=== PATIENT | female | born 1965 | race African-American/Black ===

== ENCOUNTER 2017-07-06 08:28 | Emergency (ER) | payer MEDICARE ==
[~2017-07-06] VITALS: Ht 165.1 cm; Wt 65.8 kg
[2017-07-06] MEDS ORDERED: MINOCYCLINE HCL50 MG PO (09:03)
[2017-07-06] MEDS ORDERED: NORVASC5 MG PO (09:03)
[2017-07-06] MEDS ORDERED: SODIUM CHLORIDE 0.9% 1000ML 1,000 ML IV STA (09:09)
[2017-07-06] MEDS ORDERED: PROMETHAZINE 25MG/ NS 50ML (IV) IV ONE (09:15)
[2017-07-06 11:02] VITALS: BP 130/84
== END 2017-07-06 10:55 | disposition home or self-care (01) ==
LOC: FSED 08:31
DX: R11.2 Nausea with vomiting, unspecified (principal); R19.7 Diarrhea, unspecified; A08.4 Viral intestinal infection, unspecified; I10 Essential (primary) hypertension
CPT/HCPCS: 80048; 81003; 99283; J2550; J7030

== ENCOUNTER 2019-02-15 18:25 | Emergency (ER) | payer MEDICARE ==
[~2019-02-15] VITALS: Ht 162.6 cm; Wt 66.8 kg
[~2019-02-15 18:25] MED LIST: MINOCYCLINE HCL50 MG PO; NORVASC5 MG PO
[2019-02-15] MEDS ORDERED: AUGMENTIN 875-1 EACH PO (18:52)
[2019-02-15] MEDS ORDERED: PREDNISONE20 MG PO (19:04)
[2019-02-15] MEDS ORDERED: CEFDINIR300 MG PO (19:04)
== END 2019-02-15 19:20 | disposition home or self-care (01) ==
LOC: FSED 18:25
DX: J32.0 Chronic maxillary sinusitis (principal)
CPT/HCPCS: 99282